=== PATIENT | female | born 1965 | race Caucasian/White ===

== ENCOUNTER 2016-08-05 07:54 | Day surgery (SDC) | payer BC ==
[2016-07-30 10:48] VITALS: BMI 25.6
[2016-08-05] MEDS ORDERED: ACETAMINOPHEN 500 MG TABLET (FP) PO PRN (10:00)
[2016-08-05] MEDS ORDERED: MIDAZOLAM HCL 2 MG/2 ML SINGLE DOSE VIAL ONE (10:27)
[2016-08-05] MEDS ORDERED: ONDANSETRON 4 MG/2 ML VIAL ONE (10:57)
[2016-08-05] MEDS ORDERED: ceFAZolin SODIUM 1 GM VIAL ONE ×2 (10:57)
[2016-08-05] MEDS ORDERED: oxyCODONE HCL 5 MG TABLET PO PRN (11:25)
[2016-08-05] MEDS ORDERED: ONDANSETRON 4 MG/2 ML VIAL IVPUSH PRN (11:37)
[2016-08-05 12:19] VITALS: TEMP 98.7
[2016-08-05] MEDS ORDERED: oxyCODONE HCL 5 MG TABLET ONE (12:37)
[2016-08-05 14:27] VITALS: BP 126/78; PULSE 72
--- NOTE | 2016-08-05 18:14 | OP ---
DATE OF OPERATION: 08/05/2016 PREOPERATIVE DIAGNOSIS: Basal cell right upper lid. POSTOPERATIVE DIAGNOSIS: Basal cell right upper lid. PROCEDURE: 1. Debridement, tailoring of defect right upper lid. 2. Lateral canthal flap. Lateral canthoplasty right. 3. Full thickness wedge resection right upper lid. SURGEON: Liam Bradley M.D. ANESTHESIA: Local with sedation. COMPLICATIONS: None. ESTIMATED BLOOD LOSS: 2 to 3 mL. OPERATIVE REPORT: Patient was brought to the operating room, placed on the operating room table. Vitals signs monitored, placed above the eyes. Lateral was marked right lateral canthus. Timeout was performed. Intravenous sedation was administered with a 50/50 mixture of 2% Xylocaine with 1:200,000 epinephrine, and 0.5% Marcaine was injected subcutaneously in the right lateral canthus down to periosteum and diffusely throughout the right upper lid for 2 to 3 mL. Patient was prepped and draped in sterile fashion, exposing both eyes. Lateral canthal incision was made to the left of the lateral canthus, carried down to periosteum with Jacqueline scissors. Superior stacey of the lateral canthal tendon was incised to allow for rotation of the lateral remnant of the eyelid to rotate nasally. The eyelid defect was regularized, and it was closed with 3 interrupted 6-0 silk sutures, one to the anterior lash line which was at the posterior mucocutaneous junction in far-far- near-near vertical mattress sutures at the grid line creating a pucker. These were tied, looped inferiorly. A small standing cutaneous deformity in the tarsal plate was excised, and the tarsus was closed with 3 interrupted 6-0 Vicryl sutures. The muscle area was closed with 2 interrupted 5-0 chromic and the skin was closed with interrupted 6-0 plain suture, removing standing cutaneous deformity. The margin sutures were looped superotemporally and secured at the skin of the upper lid with a 6-0 silk suture, keeping it away from the cornea. Lateral canthal area was performed with 5-0 chromic buried to the grid line of the upper and lower lid with a buried knot and lateral to the skin was closed with 6-0 plain, completing the canthoplasty. Bacitracin was placed in the eye and on the sutures of the upper lid and lateral canthus. Patient was taken to recovery room in stable condition. LIAM BRADELY M.D. DEAN/[id number]
== END 2016-08-05 13:30 | disposition home or self-care (01) ==
LOC: FASU 07:54
PROVIDERS: ATTEND Ophthalmology
PROC: 08SN0ZZ Reposition Right Upper Eyelid, Open Approach (ICD-10-PCS; principal; 2016-08-05 10:44)
DX: C44.112 Basal cell carcinoma of skin of right eyelid, including canthus (principal)
CPT/HCPCS: 84703; 94760